=== PATIENT | female | born 1965 | race African-American/Black ===

== ENCOUNTER → 2017-08-22 | Outpatient (CLI) | payer BC | END | disposition home or self-care (01) | LOC: CDC | DX: Z01.810 Encounter for preprocedural cardiovascular examination (principal) | CPT/HCPCS: 93000 ==

== ENCOUNTER 2017-08-26 06:51 | Day surgery (SDC) | payer BC ==
[~2017-08-26] VITALS: Ht 167.6 cm; Wt 107.0 kg
[2017-08-26 07:21] VITALS: BP 159/83
[2017-08-26 07:28] LABS: POINT-OF-CARE METER ID UU14174212
[2017-08-26 10:22] VITALS: BP 168/88
[2017-08-26 11:30] VITALS: BP 169/97
== END 2017-08-26 11:33 | disposition home or self-care (01) ==
LOC: SDC
PROVIDERS: Obstetrics & Gynecology Gynecology
PROC: 0UDB8ZX Extraction of Endometrium, Via Natural or Artificial Opening Endoscopic, Diagnostic (ICD-10-PCS; principal; 2017-08-26)
DX: D25.9 Leiomyoma of uterus, unspecified (principal); N95.0 Postmenopausal bleeding; I10 Essential (primary) hypertension; E66.9 Obesity, unspecified; Z68.38 Body mass index [BMI] 38.0-38.9, adult; N83.202 Unspecified ovarian cyst, left side; Z80.3 Family history of malignant neoplasm of breast
CPT/HCPCS: 82948; 88305; J1100; J1885; J2250; J2405; J3010

== ENCOUNTER 2017-10-04 04:16 | Emergency (ER) | payer BC ==
[~2017-10-04] VITALS: Ht 167.6 cm; Wt 107.7 kg
[2017-10-04] MEDS ORDERED: FIORICET 50-301 EAC1 PO (05:35)
[2017-10-04 05:53] VITALS: BP 166/98
== END 2017-10-04 05:53 | disposition home or self-care (01) ==
LOC: EME 04:16
DX: R51 Headache (principal)
CPT/HCPCS: 70450; 99281; 99284